=== PATIENT | male | born 1980 | race Caucasian/White ===

== ENCOUNTER 2021-10-30 21:36 | Emergency (ER) | payer SELFPAY ==
[~2021-10-30] VITALS: Ht 170.2 cm; Wt 72.6 kg
[2021-10-30 21:45] VITALS: BP 145/80
--- NOTE | 2021-10-30 21:48 | NUR ---
TO LOBBY A/W BED AMBULATORY
--- NOTE | 2021-10-30 21:56 | NUR ---
pt taken to rad.
--- NOTE | 2021-10-30 22:03 | NUR ---
pt taken to bed 12.
--- NOTE | 2021-10-30 22:16 | NUR ---
41 Y/O MALE PATIENT PRESENTS TO ED WITH C/O LEFT HAND PAIN X 2 DAYS. PT REPORTS A LARGE PIECE OF METAL FALLING ON LEFT THUMB BENDING THE THUMB BACK AND HURTING WRIST. EDEMA NOTED ON THE LEFT WRIST AND HAND, BRUISING NOTED ON THE LEFT FOREARM, TENDER TO TOUCH, PT HAS FULL RANGE OF MOTION ON THE ARM, WRIST, AND 5 FINGERS. PT REPORTS MILD NUMBNESS TO THE LEFT HAND. DENIES N/V/D; SKIN IS PINK/WARM/DRY; AAOX4 WITH EVEN AND STEADY GAIT;PT DENIES ANY FEVER, CP, SOB, OR COUGH AT THIS TIME; PATIENT STATES PAIN OF 0/10 AT THIS TIME, PT REPORTS TAKING X2 IBUPROFEN FOR PAIN; VSS; PATIENT POSITIONED FOR COMFORT; HOB ELEVATED; BEDRAILS UP X1; BED DOWN. PMEDHX: DENIES NKDA
[2021-10-30] MEDS: LIDOCAINE/EPI 2% 1:100000 20 ML VIAL INJ ONE (23:01)
[2021-10-30] MEDS: MORPHINE SULFATE 4 MG/ML SYR IVP ONE (23:06)
[2021-10-30] MEDS: ONDANSETRON 4 MG/2 ML VIAL IVP ONE (23:07)
--- NOTE | 2021-10-31 00:15 | NUR ---
ASSISTED WITH CAST PLACEMENT.
--- NOTE | 2021-10-31 00:25 | NUR ---
ULTRASOUND AT THE BEDSIDE
[2021-10-31] MEDS ORDERED: OXYC5TAB4 PO (00:38)
[2021-10-31] MEDS ORDERED: NAPR-54 PO (00:38)
[2021-10-31 00:53] VITALS: BP 119/80
--- NOTE | 2021-10-31 00:53 | NUR ---
Patient discharged with v/s stable. Written and verbal after care instructions given and explained. Patient alert, oriented and verbalized understanding of instructions. Ambulatory with steady gait. All questions addressed prior to discharge. ID band removed. Patient advised to follow up with PMD. Rx of naprosyn and roxicodone given. Patient educated on indication of medication including possible reaction and side effects. Opportunity to ask questions provided and answered.
== END 2021-10-31 00:53 | disposition home or self-care (01) ==
LOC: MED 21:36
DX: S52.592A Other fractures of lower end of left radius, initial encounter for closed fracture (principal); W22.8XXA Striking against or struck by other objects, initial encounter; Y93.89 Activity, other specified; Y92.89 Other specified places as the place of occurrence of the external cause; Y99.8 Other external cause status
CPT/HCPCS: 25605; 73110; 73130; 96374; 96375; 99152; 99285; J2001; J2270; J2405; Q0092